=== PATIENT | female | born 1970 | race Caucasian/White ===

== ENCOUNTER → 2017-06-06 | Outpatient (CLI) | payer OTHER | END | disposition home or self-care (01) | LOC: CFH 09:20 | PROVIDERS: ATTEND Obstetrics & Gynecology | DX: Z12.31 Encounter for screening mammogram for malignant neoplasm of breast (principal) | CPT/HCPCS: G0202 ==

== ENCOUNTER 2019-10-23 01:32 | Emergency (ER) | payer OTHER ==
[~2019-10-23] VITALS: Ht 175.3 cm; Wt 97.5 kg
--- NOTE | 2019-10-23 01:56 | NUR ---
PT STATES SHE WOKE UP WITH CHEST PAIN THAT RADIATES TO HER BACK at 0000, + NAUSEA. MONITORS APPLIED, SIDERAILS UP X2, CALL LIGHT WITHIN REACH
[2019-10-23] MEDS ORDERED: SODIUM CHLORIDE FLUSH 10ML SYR IVF ONE (02:00)
[2019-10-23] MEDS ORDERED: IBUP100T PO (02:01)
[2019-10-23] MEDS ORDERED: LEVO75TA5 PO (02:01)
[2019-10-23] MEDS ORDERED: LIOT5TAB11 PO (02:04)
[2019-10-23] MEDS ORDERED: MAALOX/HYOSCYAMINE/LIDOCAINE 45 ML BTL ONE (02:06)
[2019-10-23] MEDS ORDERED: ONDANSETRON ODT 4 MG ONE (02:06)
[2019-10-23 02:08] LABS: BASOPHILS # (AUTO) 0.04 x10^3/uL (0-0.1); BASOPHILS % (AUTO) 1 % (0-1); EOSINOPHILS # (AUTO) 0.17 x10^3/uL (0-0.4); EOSINOPHILS % (AUTO) 2 % (1-7); LYMPHOCYTES # (AUTO) 1.51 x10^3/uL (1-3.4); LYMPHOCYTES % (AUTO) 21 % (22-44); MD NO; MEAN CORPUSCULAR HEMOGLOBIN 28.6 pg (27.0-34.8); MEAN CORPUSCULAR HGB CONC 33.2 g/dL (32.4-35.8); MEAN CORPUSCULAR VOLUME 86.2 fL (80-100); MEAN PLATELET VOLUME 8.1 fL (7.4-10.4); MONOCYTES # (AUTO) 0.55 x10^3/uL (0.2-0.8); MONOCYTES % (AUTO) 8 % (2-9); NEUTROPHILS # (AUTO) 5.02 x10^3/uL (1.8-6.8); NEUTROPHILS % (AUTO) 69 % (42-75); PLATELET COUNT 221 x10^3/uL (130-400); RED BLOOD COUNT 4.68 x10^6/uL (3.82-5.3); RED CELL DISTRIBUTION WIDTH 13.2 % (9.6-15.2)
--- NOTE | 2019-10-23 02:09 | NUR ---
PT MEDICATED PER MAR
[2019-10-23 02:21] LABS: ALANINE AMINOTRANSFERASE 36 U/L (12-78); ALBUMIN 3.5 g/dL (3.4-5.0); ANION GAP 7 mmol/L (5-15); CALCIUM 8.4 mg/dL (8.5-10.1); CHLORIDE 111 mmol/L (98-107); CREATININE 0.85 mg/dL (0.55-1.02)
[2019-10-23 02:25] LABS: ALKALINE PHOSPHATASE 75 U/L (45-117); BILIRUBIN,TOTAL 0.2 mg/dL (0.2-1.0); TOTAL PROTEIN 7.2 g/dL (6.4-8.2); TROPONIN I < 0.015 ng/mL (0.000-0.045)
[2019-10-23] MEDS ORDERED: ONDANSETRON ODT 8 MG PO ONE (02:30)
[2019-10-23] MEDS ORDERED: MAALOX/HYOSCYAMINE/LIDOCAINE 45 ML BTL PO ONE (02:30)
[2019-10-23 02:39] VITALS: BP 105/58
--- NOTE | 2019-10-23 02:40 | NUR ---
PT SITTING UP ON GURNEY, STATED " PAIN IS BETTER", DENIES NAUSEA. MONITORS IN PLACE, CALL LIGHT WITHIN REACH. CHART UP FOR RECHECK
== END 2019-10-23 03:05 | disposition home or self-care (01) ==
LOC: ED 02:50
DX: R07.89 Other chest pain (principal); M54.6 Pain in thoracic spine; R11.0 Nausea
CPT/HCPCS: 36415; 71045; 80053; 83690; 84484; 84703; 85025; 93005; 99284; Q0162

== ENCOUNTER → 2020-09-03 | Outpatient (CLI) | payer OTHER ==
[~2020-09-03] MED LIST: IBUP100T PO; LEVO75TA5 PO; LIOT5TAB11 PO
== END | disposition home or self-care (01) ==
LOC: CFH 13:49
PROVIDERS: ATTEND Obstetrics & Gynecology
DX: Z12.31 Encounter for screening mammogram for malignant neoplasm of breast (principal)
CPT/HCPCS: 77063; 77067